=== PATIENT | male | born 1975 | race Two or more races ===

== ENCOUNTER 2022-01-05 11:32 | Emergency (ER) | payer OTHER ==
[~2022-01-05] VITALS: Ht 167.6 cm; Wt 83.5 kg
--- NOTE | 2022-01-05 11:57 | NUR ---
BIB FAMILY C/O R LEG PAIN X MONTHS AND WAS TOLD TO COME TO BE ER BY DIALYSIS. VITALS ARE WITHIN NORMAL ILMITS. BREATHING IS EVEN AND UNLABORED, ON ROOM AIR. AWAITING MD MISHRA.
--- NOTE | 2022-01-05 15:29 | NUR ---
IV ESTABLISHED R HAND 20G. LABS DRAWN AND COLLECTED AT BEDSIDE
[2022-01-05 15:39] LABS: BASOPHILS # (AUTO) 0.1 K/uL (0.0-0.2); BASOPHILS % (AUTO) 1.1 % (0.0-2.0); EOSINOPHILS % (AUTO) 4.8 % (0.0-6.0); HEMATOCRIT 33 % (39-51); HEMOGLOBIN 10.6 g/dL (13.5-17.5); LYMPHOCYTES # (AUTO) 0.8 K/uL (0.8-4.8); LYMPHOCYTES % (AUTO) 11.5 % (20.0-44.0); MEAN CORPUSCULAR HGB CONC 33 g/dl (31.0-36.0); MEAN CORPUSCULAR VOLUME 89 fL (80-96); MONOCYTES # (AUTO) 0.5 K/uL (0.1-1.30); MONOCYTES % (AUTO) 7.3 % (2.0-12.0); NEUTROPHILS # (AUTO) 4.9 K/uL (1.8-8.9); NEUTROPHILS % (AUTO) 75.3 % (43.0-81.0); PLATELET COUNT (AUTO) 224 K/uL (150-450); RED BLOOD CELL COUNT(AUTO) 3.64 MIL/uL (4.5-6.0); WHITE BLOOD COUNT (AUTO) 6.6 K/uL (4.3-11.0)
[2022-01-05] MEDS ORDERED: IOHEXOL-350 100 ML VIAL IV ONE (17:00)
[2022-01-05 17:23] LABS: POTASSIUM 4.5 mmol/L (3.5-5.1)
[2022-01-05 19:36] VITALS: BP 144/81
--- NOTE | 2022-01-05 19:36 | NUR ---
Patient discharged to home in stable condition. Written and verbal after care instructions given. Patient verbalizes understanding of instruction.
== END 2022-01-05 19:52 | disposition home or self-care (01) ==
LOC: ER 11:32
DX: I73.89 Other specified peripheral vascular diseases (principal); I10 Essential (primary) hypertension; E11.9 Type 2 diabetes mellitus without complications
CPT/HCPCS: 36415; 75635; 80048; 85025; 85730; 93925; 93970; 99285; Q9967